=== PATIENT | male | born 2000 | race Two or more races ===

== ENCOUNTER 2023-05-29 00:58 | Emergency (ER) | payer SELFPAY ==
[2023-05-29] MEDS ORDERED: risperiDONE 1 MG TAB ONE (03:23)
[2023-05-29] MEDS ORDERED: Lorazepam 1 MG TAB ONE (05:29)
[2023-05-29] MEDS ORDERED: Ziprasidone 20 MG VIAL ONE (13:01)
[2023-05-29] MEDS ORDERED: Sterile Water 10 ML ONE (13:02)
== END 2023-05-29 16:40 ==
LOC: ERS 00:58
DX: R45.851 Suicidal ideations (principal); F23 Brief psychotic disorder
CPT/HCPCS: 99285; J3486